=== PATIENT | female | born 1950 | race Two or more races ===

== ENCOUNTER 2016-06-20 09:04 | Emergency (ER) | payer MEDICAID, OTHER ==
[2016-06-20 09:36] VITALS: BP 172/78; PULSE 64; RESP 16; TEMP 97.9; O2SAT 95
--- NOTE | 2016-06-20 09:53 | UCPHY ---
H & P Time Seen by Provider: 06/20/16 09:43 HPI/ROS: CHIEF COMPLAINT: Facial redness and swelling. HISTORY OF PRESENT ILLNESS: 65-year-old female presents with 3 days of facial redness and swelling. The symptoms began as a small bump on her right cheek that slowly spread. She admits associated nausea and mild diarrhea which she has treated with Imodium. She has clear drainage from her eyes. No vomiting, fever, oral weakness or pain, double vision, or other complaints. REVIEW OF SYSTEMS: Constitutional: No fever, no chills. Eyes: No diplopia. ENT: No sore throat. Cardiovascular: No chest pain, no palpitations. Respiratory: No cough, no shortness of breath, no wheezing. Gastrointestinal: No nausea vomiting or diarrhea. No abdominal pain. Genitourinary: No hematuria or frequency. Musculoskeletal: No back pain. Skin: As above. Neurological: No headache. 10 point ROS otherwise negative Past Medical/Surgical History: Hypertension. Social History: Nonsmoker. Smoking Status: Never smoked Physical Exam: General Appearance: Alert, no distress. Afebrile. Normal phonation. No respiratory distress. Eyes: Pupils equal and round no pallor or injection. No icterus ENT, Mouth: Mucous membranes moist. Pharynx not erythematous and without exudate. TM Clear. Neck: No adenopathy. Supple. No JVD. Trachea in midline. Respiratory: There are no retractions, lungs are clear to auscultation. Cardiovascular: Regular rate and rhythm. Abdomen: Soft and nontender, no masses, bowel sounds normal. Femoral pulses equal. Neurological: Ox3. No motor weakness. Sensation intact. Gait nl. Skin: Warm and dry, no rashes. Musculoskeletal: No joint swelling. Extremities: No edema. Homans sign negative. No cords. Psychiatric: Patient is oriented X 3, there is no agitation Constitutional: Initial Vital Signs Temperature (C) 36.6 C 06/20/16 09:35 Heart Rate 64 06/20/16 09:35 Respiratory Rate 16 06/20/16 09:35 Blood Pressure 172/78 H 06/20/16 09:35 O2 Sat (%) 95 06/20/16 09:35 O2 Delivery Mode Room Air Allergies/Adverse Reactions: No Known Allergies Allergy (Verified 06/20/16 09:45) Home Medications: Medication Instructions Recorded Hydrochlorothiazide 25 mg PO DAILY 09/13/12 [Hydrochlorothiazide 25 MG (RX)] Lisinopril [Zestril 40 mg (RX)] 40 mg PO DAILY 01/14/12 Nebivolol HCl [Bystolic 20 mg] 20 mg PO 01/14/12 Amox Tr/K Clav (Augmentin) 875 mg PO Q12 #14 tab 06/20/16 [Augmentin 500/125 MG TAB (*)] Departure - Departure Disposition: Home, Routine, Self-Care Clinical Impression: Cellulitis Qualifiers: Site of cellulitis: face Qualified Code(s): L03.211 - Cellulitis of face Condition: Good Instructions: Cellulitis (ED) Additional Instructions: Take Augmentin as prescribed. Follow up with your primary care provider next week for reevaluation. Return for fever, worsening swelling or redness, vomiting, or other serious worsening of condition. Referrals: MICK BARDALES [Primary Care Provider] - As per Instructions Prescriptions: Amox Tr/K Clav (Augmentin) [Augmentin 500/125 MG TAB (*)] 875 mg PO Q12 #14 tab Report Scribed for: Luis A Landrum Report Scribed by: Tino Barillas Date of Report: 06/20/16 Time of Report: 09:53 Physician Review and Approval Statement: 06/20/16 09:53 Portions of this note were transcribed by a medical screener. I personally performed a history, physical exam, medical decision making, and confirmed accuracy of information the transcribed note.
== END 2016-06-20 10:18 | disposition home or self-care (01) ==
LOC: CED 09:04
DX: L03.211 Cellulitis of face (principal); I10 Essential (primary) hypertension
CPT/HCPCS: G0463-PO

== ENCOUNTER 2017-02-15 15:18 | Observation (INO) | payer OTHER ==
[2017-02-15] MEDS ORDERED: ONDANSETRON 4 MG/2 ML VIAL IVP PRN (16:06)
[2017-02-15] MEDS ORDERED: ONDANSETRON DISINTEGRATING 4 MG TAB PO PRN (16:06)
[2017-02-15] MEDS ORDERED: ACETAMINOPHEN 325 MG TAB PO PRN (16:06)
[2017-02-15] MEDS ORDERED: NITROGLYCERIN 0.4 MG BTL SL PRN (16:19)
--- NOTE | 2017-02-15 17:44 | CPEKG ---
Heart Rate: 64 RR Interval: 938 P-R Interval: 156 QRSD Interval: 74 QT Interval: 460 QTC Interval: 475 P [place]: 32 QRS [place]: 53 T Wave [place]: 51 EKG Severity - ABNORMAL ECG - EKG Impression: SINUS RHYTHM EKG Impression: CONSIDER LEFT VENTRICULAR HYPERTROPHY Electronically Signed By: Pavan Jaquez 18-Feb-2017 13:45:59
[2017-02-15] MEDS ORDERED: ASPIRIN 325 MG TAB PO ONE (17:54)
--- NOTE | 2017-02-15 18:18 | PDCARPN ---
Cardiology Progress Note Chief Complaint: Patient reports episodes of chest pressure, and elevated blood pressure Assessment/Plan: Assessment: Please see Dr. Jaquez's office note from 02/15/2017 use as history and physical. 66-year-old female with significant past history that includes CAD ( noted to have 40% stenosis of cardiac catheterization in 2011), hypertension, hyperlipidemia, previous tobacco abuse. Reporting for last month of episodes of midsternal chest pressure, coming on spontaneously or occasionally exertion associated with shortness of, occasional nausea, and reporting occasionally diaphoresis. Symptoms can last up to 30 minutes, worsens so much on February 05, was seen at [facility] in which she reports she had electrocardiogram done an blood testing was told everything was fine. 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 Presented in office today for follow up with Cardiology per PCP recommend a station (Dr. Romo). Was sent for direct admit to PCU. Patient reports ongoing history of hypertension for last 2-3 months, with systolic blood pressures up to 200 mm Hg. Does reports she has been compliant with her medications. In office today blood pressure was noted to be 150/100, upon admission to the hospital, blood pressure was 167/62. She reports she has not taking any of her daily medications as of this time. She currently reports she is pain-free, does admit fatigue symptoms. Reports no palpitations, lightheadedness, orthopnea, PND, edema, near-syncope, or syncopal events. Denies of any symptoms suggestive of TIA or CVA. Plan: 1. Chest pressure: Patient with known history of CAD, reporting symptoms that do correspond angina (CCS class 3), electrocardiogram done on admission showing sinus rhythm, possible LVH, nonspecific T-wave abnormalities in inferior lateral leads. Will start patient on aspirin therapy, stat troponin ordered, and will plan to cycle throughout the night. Will start her on beta-anish metoprolol tartrate at 12.5 mg p.o. twice daily. Per Dr. Jaquez recommendation , will schedule patient to undergo coronary angiogram tomorrow morning. She will be made NPO after midnight. Procedure will be performed by Dr. Villar. Risks and benefits of procedure explained to the patient, she verbalizes understanding and is wanting to proceed. As long as troponin is negative, will not can start her on anticoagulation at this time. Sublingual nitroglycerin has been ordered to use p.r.n.. If patient's symptoms worsen, or has significant EKG changes, or significant elevation in troponin, cardiac catheterization can always be plan on doing more urgently. Will also plan for patient to get chest x-ray today night, and initial laboratory studies 2. Hypertension: Patient noted to be hypertensive, reporting ongoing for the last few months. Will order her home dose lisinopril to be given this evening. As mentioned above, will also start her on metoprolol tartrate. Monitor blood pressure overnight, may adjust medication in a.m.. CMP to be done today. 3. Hyperlipidemia: Patient reports compliance with home dose of Crestor, continue home dosing, with dosing tonight. Fasting lipid panel to be done in a.m.. 4. Anxiety: Patient with known history of anxiety, continue home dosage of left several. 5. Code status: Patient reports she is a full code. 6. DVT prophylaxis: Patient will be ordered Philip hose, will hold off on starting her on any anticoagulation at this time, in preparation for undergoing cardiac catheterization in a.m.. 02/15/17 18:15 Subjective: patient reports episodes of chest pressure, coming on spontaneously or with exertion, happening for close to a month, associated symptoms shortness of breath, occasional nausea, occasional diaphoresis. But chest pressure does radiate up into her neck at times. Denies of any orthopnea, PND, edema, palpitations, lightheadedness, near-syncope, or syncopal events. Reviewed/Discussed With: other (Dr Villar and Dr Jaquez) Objective: Vital Signs (8 Hrs) Temp Pulse Resp BP Pulse Ox 02/15/17 17:29 36.8 C 60 16 167/62 H 94 Intake/Output (24 Hrs) 02/14/17 02/15/17 02/16/17 05:59 05:59 05:59 Other: Weight 52.5 kg Result Diagrams: 02/15/17 22:15 02/16/17 03:48 - Physical Exam Constitutional: healthy appearing, no apparent distress Ears, Nose, Mouth, Throat: moist mucous membranes Cardiovascular: regular rate and rhythm, systolic murmur ( 1/6 systolic murmur noted along left sternal border.), pulses symmetric bilat, No jugular vein distention, No carotid bruit Peripheral Pulses: 2+: carotid (R), carotid (L), dorsalis-pedis (R), dorsalis- pedis (L) Respiratory: clear to auscultate bilat, no crackles, no wheezes Skin: no rashes, warm, no edema Neurologic: AAOx3 Psychiatric: cooperative, following commands ICD10 Worksheet Patient Problems: Problems Problem Status Onset CAD (coronary artery disease) Acute Chest pain Acute Hyperlipidemia Acute - ICD10 Problem Qualifiers (1) CAD (coronary artery disease) (2) Chest pain (3) Hyperlipidemia
[2017-02-15] MEDS: LISINOPRIL 40 MG TAB PO SCH (18:47)
[2017-02-15] MEDS: ROSUVASTATIN CALCIUM 20 MG TAB PO SCH (20:30)
[2017-02-15] MEDS: METOPROLOL TARTRATE 25 MG TAB PO SCH (20:30)
[2017-02-15 22:37] LABS: % IMMATURE GRANULYOCYTES 0.2 % (0.0-1.1); ABSOLUTE IMMATURE GRANULOCYTES 0.02 10^3/uL (0.00-0.10); ADD DIFF? NO; ADD MORPH? NO; ADD SCAN? NO; ATYPICAL LYMPHOCYTE FLAG 20 (0-99); FRAGMENT RBC FLAG 0 (0-99); HEMATOCRIT 38.5 % (38.0-47.0); HEMOGLOBIN 12.9 g/dL (12.6-16.3); LEFT SHIFT FLG 0 (0-99); LIPEMIA HEMOLYSIS FLAG 80 (0-99); MEAN CELL HEMOGLOBIN 28.3 pg (27.9-34.1); MEAN CELL HEMOGLOBIN CONCENTR. 33.5 g/dL (32.4-36.7); MEAN CELL VOLUME 84.4 fL (81.5-99.8); MEAN PLATELET VOLUME 9.5 fL (8.7-11.7); PLATELET CLUMPS FLAG 0 (0-99); PLATELET COUNT 256 10^3/uL (150-400); RED BLOOD CELL COUNT 4.56 10^6/uL (4.18-5.33); RED CELL DISTRIBUTION WIDTH 13.2 % (11.5-15.2)
[2017-02-15 22:47] LABS: INR 0.91 (0.83-1.16); PROTIME(PATIENT) 12.2 SEC (12.0-15.0)
[2017-02-15 22:48] LABS: APTT 29.7 SEC (23.0-38.0)
[2017-02-15 23:15] LABS: ALANINE AMINOTRANSFERASE 45 IU/L (9-52); ALKALINE PHOSPHATASE 90 IU/L (38-126); ANION GAP 10 mEq/L (8-16); ASPARTATE AMINOTRANSFERASE 34 IU/L (14-46); BILIRUBIN,TOTAL 0.5 mg/dL (0.1-1.4); CALCIUM 9.8 mg/dL (8.5-10.4); CARBON DIOXIDE 23 mEq/l (22-31); CHLORIDE 103 mEq/L (97-110); CREATININE 0.7 mg/dL (0.6-1.0); GLOMERULAR FILTRATION RATE > 60; GLUCOSE 97 mg/dL (70-100); POTASSIUM 4.1 mEq/L (3.5-5.2); SODIUM 136 mEq/L (134-144)
[2017-02-15 23:27] LABS: TROPONIN I < 0.012 ng/mL (0.000-0.034)
[2017-02-16 04:28] LABS: ANION GAP 12 mEq/L (8-16); CALCIUM 9.8 mg/dL (8.5-10.4); CARBON DIOXIDE 21 mEq/l (22-31); CHLORIDE 107 mEq/L (97-110); CHOLESTEROL 177 mg/dL (140-220); CHOLESTEROL/HDL RATIO 4.54 RATIO (1.00-4.44); CREATININE 0.7 mg/dL (0.6-1.0); GLOMERULAR FILTRATION RATE > 60; GLUCOSE 91 mg/dL (70-100); HIGH DENSITY LIPOPROTEIN 39 mg/dL (40-85); LDL/HDL RATIO 3.03 RATIO (1.00-3.22); LOW DENSITY LIPOPROTEIN 118 mg/dL (80-100); MAGNESIUM 2.1 mg/dL (1.6-2.3); NON-HIGH DENSITY LIPOPROTEIN 138 mg/dL (90-129); SODIUM 140 mEq/L (134-144); TRIGLYCERIDE 101 mg/dL (35-135); VERY LOW DENSITY LIPOPROTEINS 20 mg/dL (8-25)
[2017-02-16 04:36] LABS: TROPONIN I < 0.012 ng/mL (0.000-0.034)
[2017-02-16 05:26] LABS: COLOR YELLOW; LEUKOCYTE ESTERASE,URINE NEGATIVE (NEGATIVE); NITRITE,URINE NEGATIVE (NEGATIVE)
[2017-02-16] MEDS ORDERED: ASPIRIN EC 325 MG TAB PO ONE (06:00)
[2017-02-16] MEDS ORDERED: FAMOTIDINE 20 MG TAB PO ONE (06:00)
[2017-02-16] MEDS ORDERED: DIAZEPAM 5 MG TAB PO ONE (06:00)
[2017-02-16] MEDS ORDERED: diphenhydrAMINE 25 MG CAP PO ONE (06:00)
[2017-02-16] MEDS ORDERED: NS 1,000 ML IV ONE (06:00)
[2017-02-16 07:48] VITALS: O2SAT 90
[2017-02-16] MEDS: METOPROLOL TARTRATE 25 MG TAB PO SCH (08:10)
--- NOTE | 2017-02-16 09:07 | PDPROPOC ---
Sedation Plan of Care Sedation Plan of Care: vital signs stable, mental status noted, patient educated of risks, benefits, alternatives, patient can tolerate sedation ASA Classification: ASA 2 Planned drugs: fentanyl, midazolam Mallampati Score: Class 2 Mallampati Reference Image: Patient passed 3-3-2 rule?: Yes
--- NOTE | 2017-02-16 09:07 | PDHPUP ---
History & Physical Update H&P update statement: This history and physical update is based on an assessment of the patient which was completed after admission or registration (within 24 hours), but prior to the surgery/procedure. H&P update: H&P reviewed & patient examined, no change in patient's condition since H&P completed
[2017-02-16] MEDS ORDERED: MIDAZOLAM 2 MG/2 ML VIAL ONE (09:48)
[2017-02-16] MEDS ORDERED: fentaNYL 100 MCG/2 ML INJ ONE (09:48)
[2017-02-16] MEDS ORDERED: LIDOCAINE 1% 300 MG/30 ML SDV ONE (09:48)
[2017-02-16] MEDS ORDERED: HEPARIN 10,000 UNIT/10 ML MDV ONE (09:49)
[2017-02-16] MEDS ORDERED: VERAPAMIL 5 MG/2 ML VIAL ONE (09:49)
[2017-02-16] MEDS ORDERED: IOPAMIDOL (ISOVUE-370) 150 ML BTL IV ONE (09:49)
[2017-02-16] MEDS ORDERED: ATROPINE SULFATE 1 MG/10 ML SYR IVP PRN (11:02)
--- NOTE | 2017-02-16 11:02 | PDDXCAT ---
Diagnostic Cath Note - . Date: 02/16/17 [place] Operator: Jian Indication: CCC Class III and IV angina on medical treatment - Procedure Access: right wrist Procedure: left heart catheterization, coronary angiography, left ventriculogram - Materials Left Heart Cath size: 5F Left Heart Cath materials: JL3.5, pigtail, Arash's R - Findings-Left Heart Catheterization LM: plaque without flow limiting stenosis LAD: small with 3 small diagonals. Diffusely disease throughout the LAD and diagonals. No discrete stenosis greater than 50% LCX: large, dominant. 2 large OMs. Mid LCx 50%. Ostial OM 60% RCA: nondominant. No sig CAD EDP: 18 LVEF: 65% Wall motion: normal - Findings-Right Heart Catheterization AO: 120/80 Complications: none Estimated blood loss: <50ml Closure method: TR Band Assessment: Diffusely disease, small LAD not amenable to intervention, but likely the cause of angina. Plan: Intensify medical managment. Add Imdur. Patient Problems: Problems Problem Status Onset CAD (coronary artery disease) Acute Chest pain Acute Hyperlipidemia Acute
[2017-02-16 12:22] VITALS: BP 131/83; PULSE 47; RESP 17; TEMP 97.5
[2017-02-16] MEDS: ROSUVASTATIN CALCIUM 20 MG TAB PO SCH (12:58)
[2017-02-16] MEDS: LISINOPRIL 40 MG TAB PO SCH (14:52)
== END 2017-02-16 16:09 | disposition home or self-care (01) ==
LOC: F2W 17:14
PROVIDERS: ADMIT Internal Medicine Cardiovascular Disease; ATTEND Internal Medicine Cardiovascular Disease
PROC: B2111ZZ Fluoroscopy of Multiple Coronary Arteries using Low Osmolar Contrast (ICD-10-PCS; principal; 2017-02-15)
PROC: 4A023N7 Measurement of Cardiac Sampling and Pressure, Left Heart, Percutaneous Approach (ICD-10-PCS; principal; 2017-02-15)
PROC: B2151ZZ Fluoroscopy of Left Heart using Low Osmolar Contrast (ICD-10-PCS; principal; 2017-02-15)
DX: I25.119 Atherosclerotic heart disease of native coronary artery with unspecified angina pectoris (principal); I10 Essential (primary) hypertension; E78.5 Hyperlipidemia, unspecified; F17.210 Nicotine dependence, cigarettes, uncomplicated; F41.9 Anxiety disorder, unspecified; M85.80 Other specified disorders of bone density and structure, unspecified site; Z79.890 Hormone replacement therapy; Z79.82 Long term (current) use of aspirin
CPT/HCPCS: 71020; 93005; 93458; G0378; J1644; J2250; J3010; Q9967

== ENCOUNTER 2018-01-14 13:49 | Emergency (ER) | payer OTHER ==
--- NOTE | 2018-01-14 14:13 | EDPHY ---
H & P Time Seen by Provider: 01/14/18 14:11 HPI/ROS: Chief complaint. Suicide ideation HPI. 59-year-old female with history of anxiety and depression. She has been trying to work and was encouraged to work several hours a day at her 's business. She had been doing that for several days and then her ppaonpx-sk-zam who was a [employer] on or of the business gave her a hard time and told her who told to you could work here. There is increased stress with job. This made the patient feel more depressed. She has been having trouble sleeping. She tells me she is tired of being like this. She shot her phone off so no one could call. She tells me her calls her every day to check on her and she did not answer the phone today so the came home to check on her. She had an appointment with alcoholic counselor and at the alcoholic counselor's office today she explained this to the alcoholic counselor who is concerned about her suicidal ideation and walked her down to the emergency department. Her plan is to drink liquor, take pills and then took a hose up to her car. She has had previous suicide attempt with taking pills. She seeing a family therapist at [facility] for the last 2 weeks. She tells me she is just feeling over well and. No fever, chest pain, shortness of breath, abdominal pain ROS 10 systems were reviewed and negative with the exception of the elements mentioned in the history of present illness Past Medical/Surgical History: Asthma, hypertension, anxiety, depression Social History: , daily smoker, no alcohol Smoking Status: Current every day smoker Physical Exam: General Appearance: Alert, tearful well-developed female mild distress vital signs are stable Eyes: Pupils equal and round no pallor or injection. ENT, Mouth: Mucous membranes are moist. Respiratory: There are no retractions, lungs are clear to auscultation. Cardiovascular: Regular rate and rhythm. Gastrointestinal: Abdomen is soft and nontender, no masses, bowel sounds normal. Neurological: Awake and alert, sensory and motor exams grossly normal. Skin: Warm and dry, no rashes. Musculoskeletal: Neck is supple nontender. Extremities symmetrical, full range of motion. Psychiatric: Patient is oriented X 3, there is no agitation. Constitutional: Initial Vital Signs Temperature (C) 36.4 C 01/14/18 13:54 Heart Rate 64 01/14/18 13:54 Respiratory Rate 14 01/14/18 13:54 Blood Pressure 189/71 H 01/14/18 13:54 O2 Sat (%) 97 01/14/18 13:54 O2 Delivery Mode Room Air Allergies/Adverse Reactions: No Known Allergies Allergy (Verified 01/14/18 14:11) Home Medications: Medication Instructions Recorded Hydrochlorothiazide [HCTZ (*)] 25 mg PO HS 01/14/12 Lisinopril [Zestril 40 mg (*)] 40 mg PO HS 01/14/12 Aspirin EC [Aspirin EC 81 mg (*)] 81 mg PO HS 02/15/17 Acetaminophen [Tylenol 325mg (*)] 650 mg PO Q4HRS PRN tab 02/16/17 Albuterol [Proventil Inhaler HFA 1 - 2 puffs IH DAILY PRN 02/16/17 (*)] Cyclobenzaprine [Flexeril 10 MG 10 mg PO DAILY PRN 02/16/17 (*)] Escitalopram Oxalate [Lexapro 10 10 mg PO HS 02/16/17 MG] Estrogens,Conjugated [Premarin 0.625 mg PO HS 02/16/17 0.625 MG (*)] Isosorbide Mononitrate [Imdur 30 30 mg PO DAILY #90 tab.sr 02/16/17 mg (*)] Nebivolol HCl [Bystolic 5 mg (*)] 5 mg PO DAILY #30 tab 02/16/17 Rosuvastatin Calcium [Crestor 40mg 40 mg PO DAILY #30 tab 02/16/17 (*)] Medical Decision Making ED Course/Re-evaluation: Patient is placed on a mental health hold. She is transferred to [facility] by ambulance. I discussed and consulted with physicians in the emergency department at [facility]. They agree on transfer and evaluation. Differential Diagnosis: Many social stressors. History of anxiety and depression and previous suicide attempt. Suicide ideation this week with plan Departure - Departure Disposition: [facility] Clinical Impression: Suicidal ideation Condition: Fair
[2018-01-14 15:42] LABS: PLATELET COUNT 295 10^3/uL (150-400)
--- NOTE | 2018-01-14 16:27 | EDPHY ---
H & P Stated Complaint: SI since Wednesday , reffered from [facility] - Medical/Surgical History Hx Asthma: Yes Hx Chronic Respiratory Disease: No Hx Diabetes: No Hx Cardiac Disease: Yes Hx Renal Disease: No Hx Cirrhosis: No Hx Alcoholism: No Hx HIV/AIDS: No Hx Splenectomy or Spleen Trauma: No Other PMH: ASTHMA, HTN, Anxiety. Csection x3. right shoulder repair - Social History Smoking Status: Current every day smoker Time Seen by Provider: 01/14/18 14:11 HPI/ROS: CHIEF COMPLAINT: Suicidal ideation HISTORY OF PRESENT ILLNESS: 67-year-old female with depression and anxiety presents with suicidal ideation. Increased depression for 3 days with suicidal thoughts. Associated with decreased oral intake and insomnia. Seen by assistant professor of spanish today, referred to [facility] for [facility] and placed on an M1 hold. Denies suicidal plan. Recent stressors include work. Stopped taking all of her cardiac medications several months ago. Also stopped Zoloft several months ago. No prior history of suicidal attempt or previous psychiatric admission. No homicidal ideation. REVIEW OF SYSTEMS: complete 10 point ROS negative except at noted in the HPI (Gisell Yi) - Physical Exam Exam: General Appearance: Alert, pleasant Eyes: Pupils equal and round, no conjunctival pallor or injection ENT, Mouth: Mucous membranes moist Neck: Normal inspection Respiratory: Lungs are clear to auscultation Cardiovascular: Regular rate and rhythm Gastrointestinal: Abdomen is soft and nontender Neurological: A&O, nonfocal, normal gait Skin: Warm and dry, no rash Extremities: Nontender, no pedal edema Psychiatric: Mood and affect normal (Gisell Yi) Constitutional: Initial Vital Signs Temperature (C) 36.4 C 01/14/18 13:54 Heart Rate 64 01/14/18 13:54 Respiratory Rate 14 01/14/18 13:54 Blood Pressure 189/71 H 01/14/18 13:54 O2 Sat (%) 97 01/14/18 13:54 O2 Delivery Mode Room Air Allergies/Adverse Reactions: No Known Allergies Allergy (Verified 01/14/18 14:11) Home Medications: Medication Instructions Recorded Hydrochlorothiazide [HCTZ (*)] 25 mg PO HS 01/14/12 Lisinopril [Zestril 40 mg (*)] 40 mg PO HS 01/14/12 Aspirin EC [Aspirin EC 81 mg (*)] 81 mg PO HS 02/15/17 Acetaminophen [Tylenol 325mg (*)] 650 mg PO Q4HRS PRN tab 02/16/17 Albuterol [Proventil Inhaler HFA 1 - 2 puffs IH DAILY PRN 02/16/17 (*)] Cyclobenzaprine [Flexeril 10 MG 10 mg PO DAILY PRN 02/16/17 (*)] Escitalopram Oxalate [Lexapro 10 10 mg PO HS 02/16/17 MG] Estrogens,Conjugated [Premarin 0.625 mg PO HS 02/16/17 0.625 MG (*)] Isosorbide Mononitrate [Imdur 30 30 mg PO DAILY #90 tab.sr 02/16/17 mg (*)] Nebivolol HCl [Bystolic 5 mg (*)] 5 mg PO DAILY #30 tab 02/16/17 Rosuvastatin Calcium [Crestor 40mg 40 mg PO DAILY #30 tab 02/16/17 (*)] Medical Decision Making ED Course/Re-evaluation: This patient presents on an M1 hold for suicidal ideation. She is calm and cooperative. 9:00 p.m.-signed over to Dr. Zurita, mental health evaluation pending (Gisell Yi) Differential Diagnosis: Differential diagnosis includes though it is not limited to suicidal ideation, overdose, acute psychosis, self-injury, alcohol withdrawal. (Gisell Yi) Other Provider: 2150: Patient has been evaluated by mental health who feel she is safe for discharge and low risk for self-harm. They recommend lifting the M1 hold. ( Tanvir Zurita) - Data Points Laboratory Results: Laboratory Results 01/14/18 15:25 01/14/18 15:25 Departure - Departure Disposition: Home, Routine, Self-Care Clinical Impression: Suicidal ideation Condition: Good Instructions: Suicide Prevention (ED) Additional Instructions: Follow-up with mental health as suggested. Referrals: [facility] [Outside] - As per Instructions
--- NOTE | 2018-01-14 22:00 | ASMTTCLDSP ---
[facility] Discharge Disposition Disposition Notes: Notes: In consultation with [facility] ED physician, Tanvir Zurita MD, and on-call psychiatrist, [place] Zurita MD, both concurred that pt does not appear to meet 27-65 criteria requiring psychiatric hospitalization as pt does not appear to be an imminent risk of harm to self due to a mental illness condition. Was patient given the Answers: Not applicable Inpatient Behavioral Health Prohibited Belongings List while in the ED? Psychiatrist vacating M1 Indiana Zurita MD Hold: Date and time M1 hold 01/14/2018 09:50 PM vacated (time format is hh:mm): Type of Hold: Answers: M1/72-hour Hold Hold initiated by: Answers: ED Physician Date Signed: 01/14/2018 09:59 PM Electronically Signed By:Tanvir Gillespie
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
[2018-01-14 22:11] VITALS: BP 198/85
== END 2018-01-14 22:10 | disposition home or self-care (01) ==
LOC: CED 13:49
PROC: GZ11ZZZ Psychological Tests, Personality and Behavioral (ICD-10-PCS; principal; 2018-01-14)
DX: R45.851 Suicidal ideations (principal); F17.200 Nicotine dependence, unspecified, uncomplicated
CPT/HCPCS: 80305; G0480